=== PATIENT | female | born 1985 | race Native Hawaiian/Other Pacific Islander ===

== ENCOUNTER 2017-02-14 13:46 | Emergency (ER) | payer OTHER ==
[2017-02-14 14:22] VITALS: BMI 28.1
[2017-02-14] MEDS: Lactated Ringer's 1,000 ML IV SCH ×2 (14:45→15:56)
--- NOTE | 2017-02-14 14:53 | OBHP ---
Datetime: 02/14/2017 14:30 IP Adm Impression: , intrauterine ; No Active Labor IP Admit Plan: Observation/Evaluation Admit Comment, IP Provider: 31yo G [id number] IUP at 35w c/o CTX since 11am...described as 'on and off / mild'. No SROM. no VB. +FM. care: CP Dr Saenz/chart rev'd POBGYNH: C/S x 1 no STD PMH: denies PSH: C/S NKA PSOH: no smoking; no drugs; no ETOH A: IUP at 35w/threatened previous C/S x 1 desires PLAN: spoke to Dr Saenz will give 2 liters LR check UA Pelvic Type - PN: Adequate Extremities - PN: Normal Abdomen - PN: Normal Back - PN: Normal Breast - PN: Not Done Lungs - PN: Normal Heart - PN: Normal Thyroid - PN: Normal Neurologic - PN: Normal HEENT - PN: Normal General - PN: Normal Presentation-Admit: Vertex IP Fetus A Comments: Songram done cephalic Membranes, Provider: Intact Contraction Comments Provider: +2-4m Comments, ACOG Physical Exam: ROS: General: no fatigue no weakness HEENT: no AUGUSTIN; no visual dist CV: no CP; no palpitaions Resp: no OSb; no cough GI: No N/V/D : No F/U/D MS: no joint pain Pool Provider: Negative IP Hx Assessment: The History has been Reviewed and is Current EGA AdmitDate IP: 35.0 Vital Signs Provider: Reviewed IP Chief Complaint: Uterine contractions Dilatation, Provider: 0 Effacement, Provider: 0 Station, Provider: high Genitourinary Exam: Normal DTRs - PN: Normal
[2017-02-14 16:56] LABS: RBC URINE 1 /hpf (0-3); URINE BACTERIA FEW (<OCC); URINE BILIRUBIN NEGATIVE (NEGATIVE); URINE BLOOD NEGATIVE (NEGATIVE); URINE COLOR STRAW (YELLOW); URINE GLUCOSE (UA) NEG (Normal); URINE KETONE NEGATIVE (NEGATIVE); URINE LEUKOCYTE ESTERASE NEG Leu/uL (Negative); URINE PROTEIN NEGATIVE (NEGATIVE); URINE UROBILINOGEN 0.2-1.0 mg/dL (0.2-1.0); WBC URINE < 1 /hpf (0-5)
== END 2017-02-14 17:00 | disposition home or self-care (01) ==
LOC: H.EROB2 13:46
DX: O20.0 Threatened abortion (principal); Z3A.35 35 weeks gestation of pregnancy

== ENCOUNTER 2017-03-08 09:53 | Inpatient (IN) | payer OTHER ==
[2017-03-08 10:22] VITALS: BMI 28.5
[2017-03-08] MEDS: Lactated Ringer's 2,000 ML IV SCH ×2 (10:30→11:03)
[2017-03-08 10:52] LABS: BASO % 0.2 % (0.0-2.0); EOS # 0.1 K/uL (0.0-0.7); EOS % 0.7 % (0.0-4.0); HEMATOCRIT 38.3 % (34.0-47.0); LYMPH # 1.8 K/uL (1.0-4.3); LYMPH % 20.8 % (20.0-40.0); MEAN CELL VOLUME 79.2 fl (81.0-99.0); MEAN CORPUSCULAR HGB CONC 32.9 g/dL (33.0-37.0); MEAN PLATELET VOLUME 8.4 fl (7.2-11.7); MONO # 0.4 K/uL (0.0-0.8); MONO % 4.5 % (0.0-10.0); NEUT # 6.5 K/uL (1.8-7.0); NEUT % 73.8 % (50.0-75.0); RED CELL DISTRIBUTION WIDTH 17.7 % (11.5-14.5); WHITE BLOOD COUNT 8.9 K/uL (4.8-10.8)
--- NOTE | 2017-03-08 11:06 | OBHP ---
Datetime: 03/08/2017 10:59 IP Adm Impression: Term, intrauterine ; Active labor; Ruptured Membranes IP Admit Plan: Admit to unit Admit Comment, IP Provider: The patient is a 31-year-old 2 para 1 last menstrual period 06/03 estimated due date 03/21/2017 estimated gestational age 38+ weeks patient presents to labor an d delivery complaining of ruptured membranes 10:20 AM clear fluid. Patient reports uterine contractio ns of moderate intensity no vaginal bleeding and reports good movement. care unremarka ble patient has a history of previous section. Past medical history none Medications vitamins and iron Social history denies alcohol tobacco use Surgical history denies Obstetrical history patient reports one previous section Review of systems patient denies headache chest pain and blurry vision shortness of breath consti pation dysuria heat or cold intolerance easy bruisability musculoskeletal or neurological complaints review of systems significant for abdominal pain and leaking fluid Vital signs stable afebrile Physical exam see notes Intrauterine at 38 weeks spontaneous rupture of membranes Patient desires risks benefits alternatives to procedure discussed with patient PMD we'll con tinue discussion. Admit, external monitor, routine labs. Mode of delivery to be determined by P MD and patient. Pelvic Type - PN: Not Done Extremities - PN: Normal Abdomen - PN: Normal Back - PN: Normal Breast - PN: Not Done Lungs - PN: Normal Heart - PN: Normal Thyroid - PN: Normal Neurologic - PN: Normal HEENT - PN: Normal General - PN: Normal Weight - Estimated: 7 Presentation-Admit: Vertex FHR - Baseline A Provider: 145 Gestation - Est Wks by US: 38.0 EGA AdmitDate IP: 38.1 Vital Signs Provider: Reviewed IP Chief Complaint: Uterine contractions; Maternal discomfort NICHD Variability Prov Fetus A: Moderate 6-25bpm NICHD Accel Fetus A IP Provider: 15X15 Dilatation, Provider: 1 Effacement, Provider: 50 Station, Provider: -2 Genitourinary Exam: Not Done DTRs - PN: Normal
[2017-03-08 11:16] VITALS: BP 106/75; PULSE 87; RESP 17; TEMP 98.3
[2017-03-08] MEDS ORDERED: Lactated Ringer's 1,000 ML IV SCH ×2 (12:00→23:55)
[2017-03-08] MEDS ORDERED: cefOXitin Sodium 1 GM in Sodium Chloride 0.9% 100 ML IVPB ONE (13:55)
[2017-03-08] MEDS ORDERED: Oxytocin 30 units/LR 500ML 30 U/500 ML BAG IV ONE ×2 (14:19→16:48)
[2017-03-08] MEDS ORDERED: Morphine 1 mg/ml preservative-free Inj(Duramorph) ONE (15:50)
[2017-03-08] MEDS ORDERED: Dexamethasone 4 mg/1 ml ONE (15:52)
--- NOTE | 2017-03-08 16:06 | OBADHP ---
Datetime: 03/08/2017 10:59 Admit Comment, IP Provider: The patient is a 31-year-old 2 para 1 last menstrual period 06/03 estimated due date 03/21/2017 estimated gestational age 38+ weeks patient presents to labor an d delivery complaining of ruptured membranes 10:20 AM clear fluid. Patient reports uterine contractio ns of moderate intensity no vaginal bleeding and reports good movement. care unremarka ble patient has a history of previous section. Past medical history none Medications vitamins and iron Social history denies alcohol tobacco use Surgical history denies Obstetrical history patient reports one previous section Review of systems patient denies headache chest pain and blurry vision shortness of breath consti pation dysuria heat or cold intolerance easy bruisability musculoskeletal or neurological complaints review of systems significant for abdominal pain and leaking fluid Vital signs stable afebrile Physical exam see notes Intrauterine at 38 weeks spontaneous rupture of membranes Patient desires risks benefits alternatives to procedure discussed with patient PMD we'll con tinue discussion. Admit, external monitor, routine labs. Mode of delivery to be determined by Gaby PABON and patient. Pelvic Type - PN: Not Done Extremities - PN: Normal Abdomen - PN: Normal Back - PN: Normal Breast - PN: Not Done Lungs - PN: Normal Heart - PN: Normal Thyroid - PN: Normal Neurologic - PN: Normal HEENT - PN: Normal General - PN: Normal Weight - Estimated: 7 Presentation-Admit: Vertex FHR - Baseline A Provider: 145 Gestation - Est Wks by US: 38.0 Vital Signs Provider: Reviewed; Within Normal Limits IP Chief Complaint: Uterine contractions; Maternal discomfort NICHD Variability Prov Fetus A: Moderate 6-25bpm NICHD Accel Fetus A IP Provider: 15X15 FHR Category Provider Fetus A: Category I NICHD Decel Fetus A IP Provider: None Dilatation, Provider: 1 Effacement, Provider: 50 Station, Provider: -2 Genitourinary Exam: Not Done DTRs - PN: Normal EGA AdmitDate IP: 38.1 IP Adm Impression: Term, intrauterine ; Active labor; Ruptured Membranes IP Admit Plan: Admit to unit Datetime: 02/14/2017 14:30 IP Fetus A Comments: Songram done cephalic Membranes, Provider: Intact Contraction Comments Provider: +2-4m Comments, ACOG Physical Exam: ROS: General: no fatigue no weakness HEENT: no AUGUSTIN; no visual dist CV: no CP; no palpitaions Resp: no OSb; no cough GI: No N/V/D : No F/U/D MS: no joint pain Pool Provider: Negative IP Hx Assessment: The History has been Reviewed and is Current
[2017-03-08] MEDS ORDERED: ePHEDrine 50 mg/ml Inj ONE (16:18)
[2017-03-08] MEDS ORDERED: Morphine 1 mg/ml preservative-free Inj(Duramorph) IT ONE ×2 (16:30→23:55)
--- NOTE | 2017-03-08 17:38 | OBDS ---
DELIVERY PERSONNEL Delivery Doctor: Sebastian Saenz MD Archeology Faculty Member: bon ramirez rn Anesthesiologist: Laurie Dumont MD MATERNAL INFORMATION Delivery Anesthesia: Spinal Maternal Complications: None Provider Comments: delivery of live baby boy 9/9 clear fluid 1nuchal cord tubes and ovaries wn l ebl 800ml LABOR SUMMARY EDC: 03/21/2017 00:00 No. Babies in Womb: 1 LABOR INFORMATION Reason for Induction: Not Applicable; Maternal Diabetes Oxytocin: N/A Group B Beta Strep: Negative Antibiotics # of Doses: 1 Antibiotics Time of Last Dose: 1600 Steroids Given: None Reason Steroids Not Administered: Not Applicable MEMBRANES Membranes Rupture Method: Spontaneous Rupture of Membranes: 03/08/2017 10:20 Length of Rupture (hrs): 6.45 Amniotic Fluid Color: Clear Amniotic Fluid Amount: Small Amniotic Fluid Odor: Normal STAGES OF LABOR Stage 3 hrs: -1 Stage 3 min: -59 VAGINAL DELIVERY Episiotomy: None Laceration Extension: N/A Laceration Type: None Count Comment: correct CSECTION DELIVERY Secondary Indication: Repeat Elective CSection Incision: Lower Uterine Transverse BABY A INFORMATION Infant Delivery Date/Time: 03/08/2017 16:47 Method of Delivery: Born in Route : No : N/A Forceps: N/A Vacuum Extraction: N/A Shoulder Dystocia : No SHOULDER DYSTOCIA BABY A Infant Delivery Date/Time: 03/08/2017 16:47 PRESENTATION/POSITION BABY A Presentation: Cephalic Cephalic Presentation: Vertex Breech Presentation: N/A PLACENTA INFORMATION BABY A Placenta Delivery Time : 03/08/2017 14:48 Placenta Method of Delivery: Manual Removal Placenta Status: Delivered SCORES BABY A Heart Rate 1 min: >100 bpm Resp Effort 1 min: Good Cry Reflex Irritability 1 min: Cough or Sneeze or Pulls Away Muscle Tone 1 min: Active Motion Color 1 min: Body [place], Extremities Blue Resuscitation Effort 1 min: N/A SCORE 1 MIN: 9 Heart Rate 5 min: >100 bpm Resp Effort 5 min: Good Cry Reflex Irritability 5 min: Cough or Sneeze or Pulls Away Muscle Tone 5 min: Active Motion Color 5 min: Body [place], Extremities Blue Resuscitation Effort 5 min: N/A SCORE 5 MIN: 9 INFORMATION BABY A Gestational Age at Delivery: 38.1 Gestational Status: Term Infant Outcome : Liveborn Condition : Stable Infant Sex: Male WEIGHT/LENGTH BABY A Birthweight (gms): 3550 Weight (lb): 7 Infant Weight (oz): 13 Infant Length Inches: 21.50 Infant Length cms: 54.6 CORD INFORMATION BABY A No. Cord Vessels: 3 Nuchal Cord : Around Neck x1, Loose Suction: Mouth; Nose ASSESSMENT BABY A Complications: None Physical Findings at Delivery: Within Normal Limits Respirations: Appears Normal Bi Application Developer/ALS Called : No Care By: Dr Medellin Transferred To: [facility]
[2017-03-08] MEDS ORDERED: Bisacodyl 5mg EC Tab PO PRN ×2 (17:40→23:55)
[2017-03-08] MEDS ORDERED: Oxycodone/Acetaminophen 5/325 mg Tab PO PRN (17:40)
[2017-03-08] MEDS ORDERED: DiphenhydrAMINE 50 mg/ml Inj IVP PRN ×2 (17:41→23:55)
[2017-03-09 07:42] LABS: BASO % 0.1 % (0.0-2.0); EOS % 0.1 % (0.0-4.0); HEMATOCRIT 31.9 % (34.0-47.0); LYMPH # 1.8 K/uL (1.0-4.3); LYMPH % 14.3 % (20.0-40.0); MEAN CELL VOLUME 79.8 fl (81.0-99.0); MEAN CORPUSCULAR HEMOGLOBIN 26.2 pg (27.0-31.0); MEAN CORPUSCULAR HGB CONC 32.8 g/dL (33.0-37.0); MEAN PLATELET VOLUME 8.2 fl (7.2-11.7); MONO # 0.5 K/uL (0.0-0.8); MONO % 3.9 % (0.0-10.0); NEUT % 81.6 % (50.0-75.0); NRBC % 0.1 % (0.0-0.0); RED CELL DISTRIBUTION WIDTH 17.8 % (11.5-14.5); WHITE BLOOD COUNT 12.3 K/uL (4.8-10.8)
--- NOTE | 2017-03-09 08:13 | OBPPN ---
Datetime: 03/09/2017 08:07 PP Pain Prov: Within normal limits PP Nausea Prov: Denies PP Flatus Prov: Yes PP BM Prov: No PP Breasts Prov: Normal PP Heart Prov: Normal PP Lungs Prov: Normal PP Abdomen/Uterus Prov: Normal PP Lochia Prov: Normal PP Vulva/Perineum Prov: Normal PP CVA Tenderness Prov: Normal PP Extremities Prov: Normal PP C/S Incision Prov: Normal PP Progress Prov: Normal PP Impression Prov: Normal progression PP Plan Prov: Continue present management PP Progress Note Prov: stable pod1 continue present care dc romero oob with assistance advance diet t o regular dc dressing may shower IP PP Procedures: None
--- NOTE | 2017-03-09 10:22 | OP ---
PROCEDURE DATE: 03/08/2017 PREOPERATIVE DIAGNOSES: Term , previous , in labor and malpresentation. POSTOPERATIVE DIAGNOSES: Term , previous , in labor and malpresentation. SURGEON: Colin Saenz MD ELEMENTARY SPANISH TEACHER: Dr. Cook ANESTHESIA: Dr. Dumont, spinal anesthesia. PROCEDURE: Repeat low transverse . FINDINGS: Term-size uterus, live baby boy, 9 and 9, clear fluid, 1 nuchal cord. Tubes and ova belia within normal limits. ESTIMATED BLOOD LOSS: 800 mL. With the patient in the supine position and spinal anesthesia, patient is prepped and draped in usual sterile manner. Dr. Cook assisted with preparation of the surgery and throughout the surgery. A fter prepping the patient, a Pfannenstiel incision was made and taken down to the fascia in layers. Fascia incised and extended bilaterally. Muscles from the fascia by sharp dissection, afte r which the muscles were opened in the midline. Peritoneum was grasped, incised and extended vertica lly. There was some small amount of adhesions, which were just lysed sequentially. A bladder flap w as established. Bladder pushed away from the operative field. A low transverse incision made in the uterus, curving upwards, then extended bilaterally. Baby was removed without any complication, give n to customer business manager, who resuscitated. After this was done, the placenta was removed intact. Uterus w as then exteriorized, cleaned, and closed in 2 layers with 1 Vicryl maintaining hemostasis. After th is was done, the pelvic cavity was irrigated until clean. The wet laps were removed from the paracol ic gutters. After that, the uterus was repositioned. Peritoneum was grasped and closed with 1 Vicry l, muscles approximated with [address] Cook assisted all through the surgery. After that was done, the fascia was closed with 1 Vicryl, Dr. Cook doing his half, I am doing my half, starting at each end and finishing in the midline. After that was done, subcutaneous layer was closed with 2- 0 plain and the skin was closed in a subcuticular fashion with 3-0 Prolene. Steri-Strips were then a pplied to the incision. The patient tolerated the procedure well and was in satisfactory condition o n her way to recovery room. Dr. Cook was there from the beginning of the surgery to the end of th e procedure and he assisted at each level as it was necessary. Colin Saenz MD cc: 22 TT: 03/09/2017 10:22:09 en
[2017-03-09] MEDS: Oxycodone/Acetaminophen 5/325 mg Tab PO PRN ×2 (16:44→20:38)
[2017-03-10] MEDS: Oxycodone/Acetaminophen 5/325 mg Tab PO PRN ×2 (09:02→16:16)
--- NOTE | 2017-03-10 09:13 | OBPPN ---
Datetime: 03/10/2017 09:10 PP Pain Prov: Within normal limits PP Nausea Prov: Denies PP Flatus Prov: Yes PP BM Prov: No PP Breasts Prov: Normal PP Heart Prov: Normal PP Lungs Prov: Normal PP Abdomen/Uterus Prov: Normal PP Lochia Prov: Normal PP Vulva/Perineum Prov: Normal PP CVA Tenderness Prov: Normal PP Extremities Prov: Normal PP C/S Incision Prov: Normal PP Progress Prov: Normal PP Impression Prov: Normal progression PP Plan Prov: Continue present management PP Progress Note Prov: stable pod2 continue present care IP PP Procedures: None Vital Signs Provider PP: Reviewed; Within Normal Limits
--- NOTE | 2017-03-11 13:25 | OBPPN ---
Datetime: 03/11/2017 13:21 PP Pain Prov: Within normal limits PP Nausea Prov: Denies PP Flatus Prov: Yes PP BM Prov: Yes PP Breasts Prov: Normal PP Heart Prov: Normal PP Lungs Prov: Normal PP Abdomen/Uterus Prov: Normal PP Lochia Prov: Normal PP Vulva/Perineum Prov: Normal PP CVA Tenderness Prov: Normal PP Extremities Prov: Normal PP C/S Incision Prov: Normal PP Progress Prov: Normal PP Impression Prov: Normal progression PP Plan Prov: Continue present management PP Progress Note Prov: stable pod 3 dc home today IP PP Procedures: None Vital Signs Provider PP: Reviewed; Within Normal Limits
--- NOTE | 2017-03-11 13:26 | OBDCSUM ---
Datetime: 02/14/2017 17:00 Disch Instr Activity: Normal activity; Bedrest; May be up to bathroom; May be up for meals; May Show er Discharge Instructions, Provider: Specific instructions as noted Discharge Diagnosis, Provider: Term Delivered Disch Activity Restrictions: No exercising; No lifting; No driving; Minimize walking; Minimize stair -climbing; No sexual activity; Nothing in vagina - Tancred, tampons, douche Discharge Comment, Provider: dc home today call office if any problems Contraception after Delivery: Undecided
== END 2017-03-11 15:15 | disposition home or self-care (01) | DRG 766 ==
LOC: H.EROB2 09:53 → H.EROB 10:18 → H.OB/GYN 19:45
PROVIDERS: ADMIT Specialist; ATTEND Specialist
PROC: 10D00Z1 Extraction of Products of Conception, Low, Open Approach (ICD-10-PCS; principal; 2017-03-08)
PROC: 4A1HXCZ Monitoring of Products of Conception, Cardiac Rate, External Approach (ICD-10-PCS; 2017-03-08)
DX: O34.211 Maternal care for low transverse scar from previous cesarean delivery (principal); O69.81X0 Labor and delivery complicated by cord around neck, without compression, not applicable or unspecified; Z37.0 Single live birth; Z3A.38 38 weeks gestation of pregnancy